=== PATIENT | female | born 1965 | race Caucasian/White ===

== ENCOUNTER → 2018-11-15 | Outpatient (CLI) | payer BC ==
--- NOTE | 2018-11-15 17:03 | Diagnostic Imaging Report ---
INDICATION: Right-sided chest pain. EXAMINATION: PA and lateral chest. FINDINGS: There are multiple surgical sherri in the neck and upper mediastinum that may be from a thyroidectomy. There is some callus of the left anterior first rib at the costochondral junction. The heart size and pulmonary vascularity are normal. The lungs are clear. There are no effusions or pneumothoraces. IMPRESSION: No acute abnormalities in the chest. Dictated by: Dictated on workstation # [id number]
== END ==
LOC: RAD 14:23
PROVIDERS: ATTEND Internal Medicine
DX: R07.89 Other chest pain (principal)
CPT/HCPCS: 71046